=== PATIENT | male | born 1950 | race Caucasian/White ===

== ENCOUNTER → 2017-01-23 | Outpatient (CLI) | payer OTHER | LOC: FIMAGING 11:25 | PROVIDERS: ATTEND Orthopaedic Surgery | DX: M89.9 Disorder of bone, unspecified (principal) | CPT/HCPCS: A9503 ==

== ENCOUNTER 2018-02-28 17:08 | Emergency (ER) | payer OTHER ==
--- NOTE | 2018-02-28 18:31 | EDPHY ---
H & P Time Seen by Provider: 02/28/18 17:55 HPI/ROS: CHIEF COMPLAINT: Left rib pain, left groin pain HISTORY OF PRESENT ILLNESS: The patient is a 67-year-old male who presents emergency department after falling skiing. He thinks his ski pole was jammed into his left chest. The pole also crossed his left groin causing him to have subsequent pain. He was able [place] the [place]. He developed increasing pain in his left groin and left anterior chest. He has no shortness of breath. His pain in both locations is worse with movement. No numbness or tingling of his extremity. No testicular pain. No incontinence of urine. REVIEW OF SYSTEMS: My complete review of systems is negative except as mentioned in the HPI. Past Medical/Surgical History: Includes diabetes, arthritis Past surgical history: Partial left knee replacement Social history: Patient denies smoking Smoking Status: Never smoked Physical Exam: GENERAL: Well-appearing, in no acute distress, alert. HEAD: No evidence of trauma. EYES: PERRLA, EOMI, normal to inspection. ENT: Airway intact, normal external examination. NECK: The C-spine is nontender. NEXUS criteria is negative (no midline tenderness, no distracting injury, no altered mental status, no recent alcohol use, no focal neurologic deficit). RESPIRATORY: Clear to auscultation bilaterally, no rales, rhonchi or wheezing. Left anterior chest wall tenderness palpation. No crepitus. CVS: Regular rate and rhythm, no rubs, murmurs, or gallops. ABDOMEN: Soft, nontender, nondistended. Pelvis: Stable. No tenderness palpation. Hips full range of motion. No left groin tenderness palpation. No palpable mass. : Normal testicle. No tenderness palpation. BACK: Normal to inspection, no spinal tenderness, no spinal step off, no notable bruising or abrasions. SKIN: Normal color, warm, dry. No pallor or diaphoresis. EXTREMITIES: Atraumatic, neurovascularly intact distally in all extremities, pelvis is stable , hips with full range of motion, moves all extremities freely. NEURO/PSYCH: Alert and oriented x 3, GCS 15, normal mood and affect, normal motor sensory exam. Constitutional: Initial Vital Signs Temperature (C) 37.5 C 02/28/18 17:22 Heart Rate 110 H 04/06/18 17:22 Respiratory Rate 18 02/28/18 17:22 Blood Pressure 157/96 H 02/28/18 17:22 O2 Sat (%) 93 02/28/18 17:22 O2 Delivery Mode Room Air Allergies/Adverse Reactions: HAYFEVER Allergy (Mild, Uncoded 11/03/13 12:04) ITCHY EYES Home Medications: Medication Instructions Recorded Cyanocobalamin (Vitamin B-12) 5,000 mcg PO DAILY 10/27/13 [B-12] Insulin Lispro [Humalog] 50 - 55 unit SQ AD 10/27/13 Lisinopril [Zestril] 10 mg PO DAILY 10/27/13 Lovastatin [Altoprev] 40 mg PO DAILY 10/27/13 Diclofenac Sodium 02/28/18 Hydrocodone/APAP 5/325 [[place] 1 - 2 tab PO Q4 #13 tab 02/28/18 5/325 (RX)] Methotrexate 02/28/18 Medical Decision Making - Diagnostics Imaging Results: Imaging Impressions Chest X-Ray 02/28/18 17:20 Impression: No active cardiopulmonary disease seen. Hip X-Ray 02/28/18 17:20 Impression: No acute abnormality seen about the pelvis with attention left hip. ED Course/Re-evaluation: In the emergency department I discussed possible etiologies with the patient. I answered all his questions. Chest x-ray and left hip x-ray were ordered. chest x-ray: No acute disease noted. No rib fracture. No pneumothorax. Please refer the dictated report Left hip x-ray: No acute disease noted. Please refer the dictated report. I discussed the results with the patient. I answered all his questions. He was given warnings prior to leaving. He will return with worsening symptoms. Patient has crutches. Differential Diagnosis: My differential includes but is not limited to rib fracture, rib contusion, pneumothorax, hemothorax, hernia, going contusion, pelvic fracture, femur fracture Departure - Departure Disposition: Home, Routine, Self-Care Clinical Impression: Rib pain on left side, Left groin pain Condition: Good Instructions: Contusion in Adults (ED) Additional Instructions: Return with increased pain, shortness of breath or any other concerns. Referrals: Patricia Diggs MD [Medical Doctor] - 2-3 days without fail Prescriptions: Hydrocodone/APAP 5/325 [[place] 5/325 (RX)] 1 - 2 tab PO Q4 #13 tab
[2018-02-28 18:51] VITALS: BP 132/85
== END 2018-02-28 18:50 | disposition home or self-care (01) ==
DX: S29.9XXA Unspecified injury of thorax, initial encounter (principal); S39.91XA Unspecified injury of abdomen, initial encounter; E11.9 Type 2 diabetes mellitus without complications; Z79.4 Long term (current) use of insulin; V00.321A Fall from snow-skis, initial encounter; Y92.89 Other specified places as the place of occurrence of the external cause; Y99.8 Other external cause status; Y93.23 Activity, snow (alpine) (downhill) skiing, snowboarding, sledding, tobogganing and snow tubing

== ENCOUNTER → 2018-05-20 | Outpatient (CLI) | payer OTHER | LOC: FIMAGING 14:59 | PROVIDERS: ATTEND Internal Medicine Rheumatology | DX: Z13.820 Encounter for screening for osteoporosis (principal); M85.89 Other specified disorders of bone density and structure, multiple sites; S32.82XD Multiple fractures of pelvis without disruption of pelvic ring, subsequent encounter for fracture with routine healing; X58.XXXD Exposure to other specified factors, subsequent encounter ==